=== PATIENT | male | born 1980 | race Caucasian/White ===

== ENCOUNTER → 2020-02-14 | Outpatient (CLI) | payer BC | END | disposition home or self-care (01) | LOC: LABWHC1 16:06 | PROVIDERS: ATTEND Internal Medicine | DX: Z20.828 Contact with and (suspected) exposure to other viral communicable diseases (principal) | CPT/HCPCS: U0003; C9803 ==

== ENCOUNTER → 2021-05-15 | Outpatient (CLI) | payer BC ==
--- NOTE | 2021-05-15 16:11 | XR ---
EXAMINATION TYPE: XR abdomen 2V DATE OF EXAM: 05/15/2021 CLINICAL DATA: 41-year-old male [id number], epigastric pain, [facility] COMPARISON: None FINDINGS: Slight dextroconvex curvature of the lumbar spine. Mild stool within the right side of the colon. Scattered air extends distally to the pelvis. Small ph leboliths in the pelvis on either side. No suspicious calcifications seen. No dilated small bowel or air-fluid levels. No evidence for free intraperitoneal air. Visualized lung bases are clear. IMPRESSION: 1. No evidence of bowel obstruction or free intraperitoneal air. 2. Mild stool in the right-sided the abdomen. 3. Slight dextroconvex curvature of the lumbar spine may be positional or secondary to a slight scoli osis.
== END | disposition home or self-care (01) ==
LOC: RADXRYALE 15:19
PROVIDERS: ATTEND Physician Assistant Medical
DX: M41.86 Other forms of scoliosis, lumbar region (principal); M43.8X6 Other specified deforming dorsopathies, lumbar region; K56.41 Fecal impaction
CPT/HCPCS: 74019

== ENCOUNTER → 2023-08-12 | Outpatient (CLI) | payer BC ==
--- NOTE | 2023-08-12 15:52 | P.SLEEP ---
History of Present Illness DATE: 08/12/2023 CONSULTATION/NEW PATIENT EVALUATION HISTORY OF PRESENT ILLNESS/SLEEP-WAKE EVALUATION: 43-year-old gentleman had been evaluated in the sleep center for possible obstructive sleep apnea hypopnea syndrome. Patient had been diagnosed with obstructive sleep apnea in another institution 10 years ago, was started on treatment with CPAP, but was not able to use it. SLEEP SCHEDULE: Usually sleep schedule from 9 PM to 3 AM on weekdays and from 10 PM to 68 AM on weekend. FALLING ASLEEP: Sometimes patient has difficulties with falling asleep, has TV set in bedroom. DURING SLEEP: Patient usually sleeps on the side position with loud snoring and witnessed episodes of stop breathing during the sleep by his . No history of hypnogogical hallucinations, sleep paralysis, or cataplexy. DURING THE DAY/WAKE STATE: In the morning patient wake up tired, has difficulties to pay attention. [place] sleepiness scale is increased to 10. Usually patient does not take naps. PAST MEDICAL HISTORY: Acid reflux. PAST SURGICAL HISTORY: Tonsillectomy. MEDICATIONS: None the present time. SOCIAL HISTORY: See below. FAMILY HISTORY: Hypertension, heart problems, cancer, lung problems. REVIEW OF SYSTEMS: Loud snoring, multiple awakenings from sleep. No fevers. No double vision. No recent chest pain. No shortness of breath. No abdominal pain. No bleeding episodes. No blood in urine. No seizure episodes. PHYSICAL EXAMINATION: GENERAL: A pleasant patient without any distress. VITAL SIGNS: Please see below, weight 303 pounds, BMI 41.0. HEENT: PERRLA, EOMI. Evaluation of oropharynx showed tongue protrudes midline, low position of soft palate Mallampati 4. NECK: Supple. No JVD. Thyroid is not palpable. 17-3/4 inches in circumference. LUNGS: Clear to percussion and to auscultation. Good air exchange. No wheezing or rhonchi. HEART: S1, S2 regular. No murmurs, gallops or rubs. ABDOMEN: Soft and nontender. Bowel sounds are present. No organomegaly appreciated. EXTREMITIES: No clubbing or cyanosis. WOOD MODEL BUILDER: Awake, alert, and oriented x3. Cranial nerves 2 to 7 intact. There is no fasciculation or atrophy noted. No focal deficits observed. ASSESSMENT: 1. Loud snoring, witnessed episodes of stop breathing during the sleep, extremely low position of soft palate Mallampati 4, wide neck 17 and three- quarter inches in circumference. Obstructive sleep apnea hypopnea syndrome. 2. Obesity, BMI 41.0. 3. History of acid reflux. 4. Status post tonsillectomy. PLAN: 1. Polysomnography for evaluation of patient's breathing during sleep. 2. Following plan after reading sleep study. 3. Preferable position during sleep on the side. 4. No driving if patient feels any sleepiness. Patient is aware of civil and criminal liability for unsafe driving. 5. Sleep hygiene with regular sleep time for at least 7.5-8 hours. 6. Watching and losing weight. Thank you very much for referring this patient for consultation. Sincerely, Jorge King MD, PhD, FAASM. Diplomat of [employer] [employer], Sleep Medicine Board by [employer] [employer] [employer] Radiation Protection Engineer of [facility] [place] Past Medical History Past Medical History: Sleep Apnea/CPAP/BIPAP History of Any Multi-Drug Resistant Organisms: None Reported Past Surgical History: Tonsillectomy Additional Past Surgical History / Comment(s): rt hand tendon surgery Past Anesthesia/Blood Transfusion Reactions: No Reported Reaction Past Psychological History: No Psychological Hx Reported Smoking Status: Current every day smoker Past Alcohol Use History: None Reported Past Drug Use History: None Reported - Past Family History Father Family Medical History: Coronary Artery Disease (CAD), GERD/Reflux, Hypertension Additional Family Medical History / Comment(s): snored suspected anjel Mother Family Medical History: Hypertension, Respiratory Disorder Physical Exam Vitals: Vital Signs Temp Pulse Resp BP Pulse Ox 08/12/23 15:24 98.1 F 88 16 126/78 97 Intake and Output 08/12/23 08/12/23 08/12/23 06:59 14:59 22:59 Other: Weight 137.438 kg Sleep Note - Sleep Data ESS Total: 10 - Sleep Note Sleep Note: Temperature: 98.1 F Pulse Rate: 88 Respiratory Rate: 16 Blood Pressure: 126/78 SpO2: 97 Height: 6 ft Weight: 137.438 kg BMI: Neck Circumference: 17.7
[2023-08-12 15:58] VITALS: BP 126/78; PULSE 88; RESP 16; TEMP 98.1
== END ==
LOC: 3 N SLEEP 14:48
PROVIDERS: ATTEND Internal Medicine
DX: G47.33 Obstructive sleep apnea (adult) (pediatric) (principal); E66.9 Obesity, unspecified; Z68.41 Body mass index [BMI] 40.0-44.9, adult; Z98.890 Other specified postprocedural states; Z90.89 Acquired absence of other organs; Z87.19 Personal history of other diseases of the digestive system
CPT/HCPCS: 99211

== ENCOUNTER → 2023-09-09 | Outpatient (CLI) | payer BC ==
--- NOTE | 2023-09-16 11:42 | P.PCN ---
Description of Procedure: CLINICAL: A home sleep apnea test has been done for confirmation of possible obstructive sleep apnea-hypopnea syndrome. DESCRIPTION OF PROCEDURE: RESULTS: Recording time was 8 hours 10 minutes. Evaluation time was 4 hours 10 minutes. Evaluation time is sufficient for making conclusion about results of the test. Raw data of sleep recording has been reviewed and is adequate. Respiratory channel showed 142 apneas and 35 hypopneas. Apnea-hypopnea index was 42.4 per hour. Pulse rate in the range between minimum 51, maximum 101, average 72 by computer calculation. Lowest desaturation was 82%. IMPRESSION: 1. Severe Obstructive Sleep Apnea Hypopnea Syndrome. 2. Obesity, BMI 41.0. Please see other impressions from consultation. PLAN: 1. The patient should have PAP titration for correction of respiratory abnormallities during sleep. 2. Sleep hygiene with regular time in bed for at least 8 hours. 3. Watching and losing weight. 4. No driving if feeling any sleepiness. Thank you very much for allowing me to participate in the management of your patient. Sincerely, Jorge King MD, PhD, FAASM Diplomat of [employer] Sleep Medicine Board of [place] [employer] Acid Tester of [facility] [place]
== END ==
LOC: 3 N SLEEP 17:52
PROVIDERS: ATTEND Internal Medicine
DX: G47.33 Obstructive sleep apnea (adult) (pediatric) (principal); E66.9 Obesity, unspecified; Z68.41 Body mass index [BMI] 40.0-44.9, adult

== ENCOUNTER 2023-11-03 19:20 | Outpatient (CLI) | payer BC ==
--- NOTE | 2023-11-12 15:57 | SLS ---
SLEEP STUDY PROCEDURE: CPAP titration. CLINICAL: Titration with positive air pressure has been done for correction of respiratory abnormalities during sleep. DESCRIPTION OF PROCEDURE: The standard montage for clinical polysomnography included the electroencephalogram, the electrocardiogram, the mentalis surface electromyography, and lead II cardiography. The respiratory battery consisted of measurements of nasal/buccal airflow, pressure transducer measurements from the nose, thoracic, and abdominal effort. Video monitoring has been done to check for any parasomnia events. Nocturnal oxyhemoglobin saturations were obtained by finger oximetry. Stepwise CPAP titration has been done for normalization of patient breathing during sleep. Raw data of sleep recording has been reviewed and is adequate. RESULTS: During titration, total recording time was 388 minutes. Latency to sleep onset was in normal range, 15.5 minutes. Sleep efficiency was normal at 92.4%. Sleep architecture showed slightly short stage N1 4.5%, delta sleep was absent, and the amount of REM sleep was in normal range at 23.8%. Heart rate in the range between 50 and 89, average 64 by computer calculation. Total amount of leg movements was 89, which was around 14 times per hour. CPAP titration has been done up to the pressure 13 cm of water. At that pressure, the patient was in sleep for 2 hours 45 minutes. Respiration fully normalized to apnea- hypopnea index less than 1. IMPRESSION: 1. Obstructive sleep apnea-hypopnea syndrome controlled with CPAP. 2. Mild periodic limb movements have been documented. Please see other impressions from consultation. PLAN: 1. The patient will be started on treatment with CPAP and should use equipment every night for the whole night. 2. Losing weight. 3. Sleep hygiene with time in bed for at least 7-1/2 to 8 hours. 4. No driving if feeling sleepiness. 5. I will see patient for followup visit to evaluate clinical response on treatment, compliance with treatment, and make any necessary adjustments related to mask fitting, pressure, and humidification. 6. Please check iron profile, including ferritin level. Low level of iron may increase his risk for periodic limb movements. Thank you very much for allowing me to participate in management of your patient. Sincerely, Jorge King MD, PhD, FAASM Diplomat of [place] [employer] Sleep Medicine Board of [place] [employer] Construction Trades Teacher of [facility] MMODL / MIKIEN: [phone] / [facility]ITALLouie
== END 2023-11-04 04:12 | disposition home or self-care (01) ==
LOC: 3 N SLEEP 19:20
PROVIDERS: ATTEND Internal Medicine
CPT/HCPCS: 95811

== ENCOUNTER → 2024-02-14 | Outpatient (CLI) | payer BC ==
[2024-02-14 16:40] VITALS: BP 136/78; PULSE 81; RESP 16; TEMP 98
--- NOTE | 2024-02-14 17:41 | P.PROGSL ---
Subjective DATE: 02/14/2024 FOLLOW UP VISIT. Patient with obstructive sleep apnea hypopnea syndrome return to sleep center for follow-up visit. Recently patient had sleep study which documented obstructive sleep apnea hypopnea syndrome. Patient was initiated on PAP therapy and today is first visit after treatment was started. Patient was able to use PAP equipment every night for the whole night. The patient does not have significant problems with the mask, PAP pressure and humidification. [place] sleepiness scale is 5, which is normal. I checked information from PAP unit. PAP unit pressure 5-14, average 13.8 cm H2O. Usage is 100% and 97% for more then 4 hours, average 6.5 hours per night. Leak is 24.7 l/m, which is in acceptable range. Apnea Hypopnea Index is 2.8, which is normal. MEDICATIONS: None During physical exam: GENERAL: A pleasant patient without any distress. VITAL SIGNS: Please see below, weight 314 pounds. HEENT: PERRLA, EOMI.low position of soft palate, Mallapati 4 . NECK: Supple. No JVD. LUNGS: Clear to percussion and to auscultation. Good air exchange. No wheezing or rhonchi. HEART: S1, S2 regular. ABDOMEN: Soft and nontender. Obese EXTREMITIES: No clubbing or cyanosis. BUSINESS ACCOUNT SPECIALIST: Awake, alert, and oriented x3. No focal deficit. Impressions: 1. Obstructive sleep apnea-hypopnea syndrome. Patient demonstrated great compliance with treatment, benefiting from treatment. 2. Obesity, weight 314 pounds, patient increased weight on 11 pounds comparing with previous visit, BMI around 42. 3. History of acid reflux. 4. Status post tonsillectomy. Plan: 1. Continue using PAP equipment every night for the whole night. 2. To change air filter at least 1-2 times per month. 3. PAP unit should stay lower then position of the head. 4. Advised patient to remove all remaining water from humidifier canister daily and make it dry after each usage. Refill canister with fresh distilled water before each usage. 5. Sleep hygiene with regular time in bed for at least 8 hours. 6. Precautions related to driving. No driving if feel any sleepiness. 7. I will maintain prescription for PAP supplies including mask, tube, filters. 8. Follow up visit in 6 months or earlier if patient has any problems. 9. Watching and losing weight. Thank you very much for allowing me to participate in the management of your patient. Jorge King MD, PhD, FAASM. Diplomat of [place] [employer], Sleep Medicine Board by [place] [employer] Electric Furnace Operator of [facility] [place] Objective - Vital Signs Vital Signs: Vital Signs Temp 98.0 F 02/14/24 16:40 Pulse 81 02/14/24 16:40 Resp 16 02/14/24 16:40 BP 136/78 02/14/24 16:40 Pulse Ox 97 02/14/24 16:40 FiO2 Intake & Output 02/13/24 02/14/24 02/14/24 18:59 06:59 18:59 Weight 142.428 kg
== END ==
LOC: 3 N SLEEP 15:52
PROVIDERS: ATTEND Internal Medicine
DX: G47.33 Obstructive sleep apnea (adult) (pediatric) (principal); E66.9 Obesity, unspecified; Z98.890 Other specified postprocedural states; Z90.89 Acquired absence of other organs; Z99.89 Dependence on other enabling machines and devices; Z87.19 Personal history of other diseases of the digestive system; Z68.41 Body mass index [BMI] 40.0-44.9, adult
CPT/HCPCS: 99212